=== PATIENT | male | born 1980 | race Caucasian/White ===

== ENCOUNTER → 2018-11-22 13:13 | Outpatient (CLI) | payer OTHER, SELFPAY | PROVIDERS: Visit Provider Specialist | DX: Z98.52 Vasectomy status (principal) ==

== ENCOUNTER → 2019-01-17 12:19 | Outpatient (CLI) | payer OTHER, SELFPAY ==
[2019-01-17 12:44] LABS: Semen Sperm Prescence Post-Vas Absent (ABSENT)
== END ==
PROVIDERS: Visit Provider Specialist
DX: Z30.2 Encounter for sterilization (principal)
CPT/HCPCS: 89321